=== PATIENT | male | born 1970 | race Caucasian/White ===

== ENCOUNTER 2025-08-05 07:53 | Emergency (ER) | payer OTHER ==
[2025-08-05 09:02] LABS: CAUTI Indications for Culture Pelvic or flank pain; Glucose, Urine (Dipstick) Normal (Negative); Leukocyte Negative Leu/uL (Negative); Protein, Urine (Dipstick) Negative (Neg-Trace); RBC/HPF 21-50 HPF (0-3); Specific Gravity, Urine 1.010 (1.002-1.036); WBC/HPF 0-3 HPF (0-3)
[2025-08-05 09:07] LABS: Bacteria/HPF 1+ HPF (None Seen); Urine Culture Reflex No No
[2025-08-05] MEDS ORDERED: Iopamidol-370 76% 500 ML MDV (1 ML CHARGE) ONE (09:25)
[2025-08-05] MEDS ORDERED: Ketorolac Tromethamine 30 MG (1 mL) VIAL ONE (09:29)
[2025-08-05 09:50] LABS: #Basophils 0.07 10x3/uL (0.0-0.2); #Eosinophils 0.32 10x3/uL (0.0-0.7); #Monocytes 0.71 10x3/uL (0.11-0.59); #Neutrophils 4.72 10x3/uL (1.40-6.50); %Basophils 0.8 % (0.0-1.0); %Eosinophils 3.8 % (0.0-10.0); %Lymphocytes 30.8 % (21.0-51.0); %Monocytes 8.3 % (0.0-10.0); %Neutrophils 55.5 % (42.0-75.0); Hematocrit 47.4 % (42.0-52.0); Hemoglobin 15.8 g/dL (14.0-18.0); Mean Corpuscular Hemoglobin 29.0 pg (27.0-31.0); Mean Corpuscular Volume 87.1 fL (78.0-98.0); Platelet Count 195 10x3/uL (130-400); Red Blood Cell (RBC) Count 5.44 mill/uL (4.70-6.10); White Blood Cell (WBC) Count 8.51 10x3/uL (4.8-10.8)
[2025-08-05 10:01] LABS: ALT (SGPT) 36 U/L (Less than 45); AST (SGOT) 32 U/L (11-34); Albumin 4.7 g/dL (3.1-4.5); Alkaline Phosphatase 59 U/L (40-110); Anion Gap 18 mmol/L (10-20); BUN (Urea Nitrogen) 25 mg/dL (8.4-25.7); Bilirubin, Total 0.6 mg/dL (0.3-1.2); Calc. Creatinine Clearance 0 mL/min (70-130); Calcium 10.2 mg/dL (7.8-10.44); Carbon Dioxide 27 mmol/L (22-29); Chloride 100 mmol/L (98-107); Globulin 3.8 g/dL (2.4-3.5); Glucose 103 mg/dL (70-105); Lipase 98 U/L (8-78); Potassium 3.7 mmol/L (3.5-5.1); Sodium 141 mmol/L (136-145)
== END 2025-08-05 12:18 | disposition home or self-care (01) ==
LOC: ERS 07:53
DX: N13.2 Hydronephrosis with renal and ureteral calculous obstruction (principal); I10 Essential (primary) hypertension
CPT/HCPCS: 74177; 80053; 81001; 83690; 85025; 96374; 96375; J1885; J2550; Q9967